=== PATIENT | female | born 1965 | race Caucasian/White ===

== ENCOUNTER 2020-05-11 10:46 | Emergency (ER) | payer SELFPAY ==
--- NOTE | 2020-05-11 11:15 | ER Document Report ---
ED Medical Screen (RME) - General Chief Complaint: Abdominal Pain Stated Complaint: ABDOMINAL PAIN Time Seen by Provider: 05/11/20 11:12 Primary Care Provider: JACK DANIELSON DO [Primary Care Provider] - Follow up as needed Notes: HPI: 54-year-old female presenting with fairly constant discomfort in the lower abdomen below the umbilicus for the last 2 to 3 weeks. No fever nausea vomiting. States that pain feels like it is deep in the got. No history of anything like this previously. PHYSICAL EXAMINATION: Unable to reproduce any discomfort on palpation of the abdomen on limited exam in triage. Obese abdomen is noted. I have greeted and performed a rapid initial assessment of this patient. A comprehensive ED assessment and evaluation of the patient, analysis of test results and completion of medical decision making process will be conducted by an additional ED providers. Please note that clinical decision making for this patient was made during the 2019 pandemic of novel coronavirus which caused a significant strain on the healthcare system including at this particular facility. Criteria for admission discharge and level of care decisions as well as treatment decisions have necessarily changed TRAVEL OUTSIDE OF THE [place] IN LAST 30 DAYS: No - Related Data Allergies/Adverse Reactions: No Known Allergies Allergy (Verified 05/11/20 11:12) Physical Exam - Vital signs Vitals: Temp Pulse Resp BP Pulse Ox 98.0 F 105 H 16 161/82 H 98 05/11/20 10:50 05/11/20 10:50 05/11/20 10:50 05/11/20 10:50 05/11/20 10:50 Course - Vital Signs Vital signs: Temp Pulse Resp BP Pulse Ox 98.0 F 105 H 16 161/82 H 98 05/11/20 10:50 05/11/20 10:50 05/11/20 10:50 05/11/20 10:50 05/11/20 10:50 Doctor's Discharge - Discharge Referrals: JACK DANIELSON DO [Primary Care Provider] - Follow up as needed
[2020-05-11 11:59] LABS: APPEARANCE,URINE SLIGHTLY-CLOUDY; BILIRUBIN,URINE NEGATIVE (NEGATIVE); COLOR,URINE YELLOW; GLUCOSE, URINE NEGATIVE (NEGATIVE); KETONES,URINE NEGATIVE (NEGATIVE); LEUKOCYTE ESTERASE,URINE NEGATIVE (NEGATIVE); NITRITE,URINE NEGATIVE (NEGATIVE); PROTEIN,URINE NEGATIVE (NEGATIVE); UROBILINOGEN,URINE NEGATIVE mg/dL (<2.0)
--- NOTE | 2020-05-11 12:41 | ER Document Report ---
ED GI/ - General Chief Complaint: Lower Abdominal Pain Stated Complaint: ABDOMINAL PAIN Time Seen by Provider: 05/11/20 11:12 Primary Care Provider: JACK DANIELSON DO [Primary Care Provider] - Follow up as needed Notes: HPI: 54-year-old female who presents today with what she states is 2 weeks of some intermittent stabbing lower pelvic pain. No vaginal bleeding. No vomiting or diarrhea. No radiation to the back. No upper abdominal discomfort or chest discomfort. No real aggravating relieving factors. No dysuria. No history of similar pain. ROS: See HPI All other review of systems reviewed and otherwise negative Reviewed vital signs and nursing note as charted by RN. PHYSICAL EXAM: CONSTITUTIONAL: Alert and oriented and responds appropriately to questions. Well-appearing; well-nourished HEAD: Normocephalic; atraumatic EYES: Sclerae non-icteric CARD: Regular rate and rhythm; no murmurs; symmetric distal pulses RESP: Normal chest excursion without splinting or tachypnea; breath sounds clear and equal bilaterally; no wheezes, no rhonchi, no rales ABD/GI: Normal bowel sounds; slightly distended; elevated BMI; some mild tenderness to suprapubic region without rebound or guarding. No palpable masses or abdominal bruits BACK: The back appears normal and is non-tender to palpation EXT: Normal ROM in all joints; non-tender to palpation; no edema SKIN: No acute lesions noted NEURO: CN 2-12 intact; 5/5 bilateral upper and lower extremity strength with sensation intact to light touch PSYCH: The patient's mood and manner are appropriate. Grooming and personal hygiene are appropriate. TRAVEL OUTSIDE OF THE [place] IN LAST 30 DAYS: No - Related Data Allergies/Adverse Reactions: No Known Allergies Allergy (Verified 05/11/20 11:12) Past Medical History - Social History Smoking Status: Current Every Day Smoker Chew tobacco use (# tins/day): No Frequency of alcohol use: None Drug Abuse: Other Family History: Reviewed & Not Pertinent Physical Exam - Vital signs Vitals: Temp Pulse Resp BP Pulse Ox 98.0 F 105 H 16 161/82 H 98 05/11/20 10:50 05/11/20 10:50 05/11/20 10:50 05/11/20 10:50 05/11/20 10:50 Course - Re-evaluation Re-evalutation: 05/11/20 12:41 Given the above history and physical examination, we will obtain basic labs, liver panel and lipase, urine analysis, and obtain a CT scan of the abdomen and pelvis for further evaluation and treatment. I would like to assess for acute intra-abdominal pathology, blockage, transaminitis, pancreatitis, or urinary tract infection. 05/11/20 15:10 Labs and imaging as recorded. Patient's pain is controlled. Heart rate 101. No old hemoglobin to compare. I have called to speak with the on-call LOWER IN SUPERVISOR here. We have left a message initially. Patient has no local LOWER IN SUPERVISOR. 05/11/20 15:29 I have called and spoken directly to the LOWER IN SUPERVISOR here Dr. Ocampo. We have reviewed the films. He states that the patient needs a referral for hematology/oncology [facility]. He states someone at the office does these referrals. He states they need to see the patient in the clinic in order for this referral to be sent. Recommend a short course of pain medications with her calling the office at 7:45 AM. - Vital Signs Vital signs: Temp Pulse Resp BP Pulse Ox 98.0 F 105 H 25 H 137/60 H 99 05/11/20 10:50 05/11/20 10:50 05/11/20 13:01 05/11/20 13:01 05/11/20 13:01 - Laboratory Results Result Diagrams: 05/11/20 12:30 05/11/20 12:30 Laboratory Results Interpreted: 05/11/20 05/11/20 12:30 12:30 Hgb 9.6 L Hct 31.1 L MCV 70 L MCH 21.8 L MCHC 30.9 L RDW 20.5 H Sodium 134.8 L Critical Laboratory Results Reviewed: No Critical Results - Radiology Results Critical Radiology Results Reviewed: Yes Attending or Supervising Physician who Reviewed Radiology: Nunez Discharge - Discharge Clinical Impression: Ovarian mass, left Condition: Fair Disposition: HOME, SELF-CARE Additional Instructions: Please make sure that you call the LOWER IN SUPERVISOR's office that we have expedited for you and tell them that Dr. Ocampo wanted to make sure that you was seen tomorrow without fail. Come back immediately for any increased pain, fevers, vomiting, or any other acute problems. Prescriptions: Hydrocodone/Acetaminophen [[place] 5-325 mg Tablet] 1 tab PO Q8 #10 tablet Referrals: JACK DANIELSON DO [Primary Care Provider] - Follow up as needed WILFREDO OCAMPO MD [ACTIVE STAFF] - Follow up as needed
[2020-05-11 12:59] LABS: ABSOLUTE BASOPHILS # (AUTO) 0.1 10^3/uL (0.0-0.2); ABSOLUTE EOSINOPHILS # (AUTO) 0.3 10^3/uL (0.0-0.6); ABSOLUTE LYMPHOCYTES (AUTO) 1.6 10^3/uL (0.5-4.7); ABSOLUTE MONOCYTES (AUTO) 0.7 10^3/uL (0.1-1.4); ABSOLUTE NEUT (AUTO) 5.3 10^3/uL (1.7-8.2); BASOPHILS % (AUTO) 1.5 % (0-2); EOSINOPHILS % (AUTO) 3.2 % (0-6); HEMATOCRIT 31.1 % (36.0-47.0); HEMOGLOBIN 9.6 g/dL (12.0-15.5); LYMPHOCYTES % (AUTO) 20.2 % (13-45); MEAN CORPUSCULAR HEMOGLOBIN 21.8 pg (27.0-33.4); MEAN CORPUSCULAR HGB CONC 30.9 g/dL (32.0-36.0); MEAN CORPUSCULAR VOLUME 70 fl (80-97); MONOCYTES % (AUTO) 9.1 % (3-13); PLATELET COUNT 408 10^3/uL (150-450); RED BLOOD COUNT 4.41 10^6/uL (3.72-5.28); RED CELL DISTRIBUTION WIDTH 20.5 % (11.5-14.0); TOTAL CELLS COUNTED % (AUTO) 100 %; WHITE BLOOD COUNT 8.1 10^3/uL (4.0-10.5)
[2020-05-11 13:18] LABS: ALBUMIN 4.1 g/dL (3.5-5.0); ALKALINE PHOSPHATASE 79 U/L (38-126); ANION GAP 5 (5-19); ASPARTATE AMINO TRANSFERASE 22 U/L (14-36); BILIRUBIN,DIRECT 0.2 mg/dL (0.0-0.4); BILIRUBIN,TOTAL 0.3 mg/dL (0.2-1.3); BLOOD UREA NITROGEN 12 mg/dL (7-20); CARBON DIOXIDE 26 mmol/L (22-30); CHLORIDE 104 mmol/L (98-107); GLUCOSE 102 mg/dL (75-110); POTASSIUM 4.4 mmol/L (3.6-5.0); TOTAL PROTEIN 6.7 g/dL (6.3-8.2)
[2020-05-11 13:59] VITALS: BP 137/60
--- NOTE | 2020-05-11 14:43 | RADIOLOGY REPORT (SQ) ---
EXAM DESCRIPTION: CT ABD/PELVIS WITH IV ONLY IMAGES COMPLETED DATE/TIME: 05/11/2020 1:56 pm REASON FOR STUDY: lower abd pain COMPARISON: None. TECHNIQUE: CT scan of the abdomen and pelvis performed using helical scanning technique with dynamic intravenous contrast injection. No oral contrast. Images reviewed with lung, soft tissue, and bone windows. Reconstructed coronal and sagittal MPR images reviewed. Delayed images for evaluation of the urinary system also acquired. All images stored on PACS. All CT scanners at this facility use dose modulation, iterative reconstruction, and/or weight based d osing when appropriate to reduce radiation dose to as low as reasonably achievable (ALARA). [facility]: Dose Right [facility]: CareDose [facility]: Dose Right [facility]: Teradose 4D [facility]: VocalIQ CONTRAST TYPE AND DOSE: contrast/concentration: Isovue 350.00 mmol/ml; Total Contrast Delivered: 100 .0 ml; Total Saline Delivered: 43.0 ml BUN 12; creatinine 0.91 RENAL FUNCTION: BUN 12; creatinine 0.91 RADIATION DOSE: CT Rad equipment meets quality standard of care and radiation dose reduction techniq ues were employed. CTDIvol: 17.5 - 20.4 mGy. DLP: 2022 mGy-cm.. LIMITATIONS: None. FINDINGS: LOWER CHEST: No significant findings. No nodules or infiltrates. LIVER: Hepatic steatosis. Normal size. No masses. No dilated ducts. SPLEEN: Normal size. No focal lesions. PANCREAS: No masses. No significant calcifications. No adjacent inflammation or peripancreatic fluid collections. Pancreatic duct not dilated. GALLBLADDER: No identified stones by CT criteria. No inflammatory changes to suggest cholecystitis. ADRENAL GLANDS: No significant masses or asymmetry. RIGHT KIDNEY AND URETER: No solid masses. No significant calcifications. No hydronephrosis or hyd roureter. LEFT KIDNEY AND URETER: No solid masses. No significant calcifications. No hydronephrosis or hydr oureter. AORTA AND VESSELS: No aneurysm. No dissection. Renal arteries, SMA, celiac without stenosis. RETROPERITONEUM: No retroperitoneal adenopathy, hemorrhage or masses. BOWEL AND PERITONEAL CAVITY: No masses or inflammatory changes. No free fluid. APPENDIX: Normal. PELVIS: There is an 18.8 x 11.6 x 20.7 cm cystic left adnexal demonstrating a nodular component versu s dependent debris. The uterus and right ovary are normal in appearance. The bladder is unremarkabl e. No free peritoneal fluid. ABDOMINAL WALL: No masses. No hernias. BONES: No significant or acute findings. OTHER: No other significant finding. IMPRESSION: 18.8 x 11.6 x 20.7 cm cystic left adnexal mass with nodular component versus dependent d ebris. Differential considerations are broad to include both benign (serous/mucinous cystadenoma) an d malignant (adenocarcinoma, clear cell carcinoma) etiologies. Recommend INSTRUMENT TESTER consultation. TECHNICAL DOCUMENTATION: JOB ID: [id number] Quality ID # [id number]: Final reports with documentation of one or more dose reduction techniques (e.g., Au tomated exposure control, adjustment of the mA and/or kV according to patient size, use of iterative reconstruction technique) 2010 [employer]- All Rights Reserved Reading location - IP/workstation name: [email or web address]
== END 2020-05-11 16:50 | disposition home or self-care (01) ==
LOC: ER 10:46
DX: N83.9 Noninflammatory disorder of ovary, fallopian tube and broad ligament, unspecified (principal); R10.2 Pelvic and perineal pain; F17.200 Nicotine dependence, unspecified, uncomplicated
CPT/HCPCS: 36415; 74177; 80053; 81001; 83690; 85025; 99285